=== PATIENT | female | born 1950 | race Caucasian/White ===

== ENCOUNTER 2016-10-31 09:02 | Inpatient (IN) | payer MEDICARE, OTHER ==
[~2016-10-31] VITALS: Ht 157.5 cm; Wt 63.0 kg
[2016-10-31] MEDS ORDERED: MORPHINE SULFATE 4 MG/ML, 1ML ONE ×2 (09:27→10:38)
[2016-10-31] MEDS ORDERED: ONDANSETRON 2MG/ML, 2ML ONE (09:27)
[2016-10-31] MEDS ORDERED: SODIUM CHLORIDE FLUSH 10ML SYR IVF ONE (09:30)
[2016-10-31] MEDS ORDERED: ONDANSETRON 2MG/ML, 2ML IVPush ONE (09:30)
[2016-10-31] MEDS: MORPHINE SULFATE 4 MG/ML, 1ML IVPush PRN ×2 (09:41→10:40)
[2016-10-31] MEDS ORDERED: HYDROmorphone 1 MG/ML, 1ML ONE ×2 (11:07→11:44)
[2016-10-31] MEDS ORDERED: LORazepam 2 MG/ML, 1ML ONE (11:07)
[2016-10-31] MEDS ORDERED: SODIUM CHLORIDE 0.9% 1,000 ML IV ONE (11:09)
[2016-10-31] MEDS: HYDROmorphone 1 MG/ML, 1ML IVPush PRN ×2 (11:18→11:50)
[2016-10-31] MEDS ORDERED: LORazepam 2 MG/ML, 1ML IVPush ONE (11:30)
[2016-10-31] MEDS ORDERED: BENA40TA2 PO (12:34)
[2016-10-31] MEDS ORDERED: LEVO88TA4 PO (12:34)
[2016-10-31] MEDS ORDERED: [UNRECOGNIZED DRUG - REMARK] (12:34)
[2016-10-31 13:51] VITALS: BP 127/70
[2016-10-31] MEDS ORDERED: TRAZ100T15 PO (14:11)
[2016-10-31] MEDS ORDERED: ONDANSETRON 2MG/ML, 2ML IVPush PRN (16:00)
[2016-10-31] MEDS ORDERED: TEMAZEPAM 15 MG CAPSULE PO PRN (16:00)
[2016-10-31] MEDS ORDERED: ACETAMINOPHEN 325 MG TABLET PO PRN (16:00)
[2016-10-31] MEDS ORDERED: ENALAPRILAT 1.25 MG/ML, 2ML IVPush PRN (16:00)
[2016-10-31] MEDS ORDERED: POLYETHYLENE GLYCOL 17 GM PACKET PO PRN (16:00)
[2016-10-31] MEDS: morphine SULFATE 10 MG/ML, 1ML IVPush PRN (17:14)
[2016-10-31] MEDS: HYDROcodone/APAP 5/325 TABLET PO PRN (18:40)
[2016-10-31 19:22] VITALS: BP 110/67
[2016-10-31 20:18] VITALS: BP 110/67
[2016-10-31] MEDS ORDERED: TRAZODONE 100MG TABLET PO PRN (21:00)
[2016-11-01] MEDS: HYDROcodone/APAP 5/325 TABLET PO PRN ×3 (00:25→16:19)
[2016-11-01 01:09] LABS: PATH.CAST-FLAG NOT PRESENT; SPERM-FLAG NOT PRESENT; SRC-FLAG NOT PRESENT; XTAL-FLAG NOT PRESENT; YLC-FLAG NOT PRESENT
[2016-11-01] MEDS: SODIUM CHLORIDE 0.9% 1,000 ML IV SCH ×3 (01:33→15:15)
[2016-11-01 02:57] VITALS: BP 114/68
[2016-11-01] MEDS: LEVOTHYROXINE 88 MCG TABLET PO SCH (06:16)
[2016-11-01] MEDS: morphine SULFATE 10 MG/ML, 1ML IVPush PRN ×2 (06:16→20:02)
[2016-11-01 06:24] LABS: ASPARTATE AMINO TRANSFERASE 31 U/L (15-37); BLOOD UREA NITROGEN 10 mg/dL (7-18)
[2016-11-01 07:41] VITALS: BP 132/73
[2016-11-01] MEDS: BENAZEPRIL 20 MG TABLET PO SCH (11:36)
[2016-11-01 13:30] VITALS: BP 111/66
[2016-11-01] MEDS ORDERED: METH750T2 PO (15:40)
[2016-11-01] MEDS ORDERED: CARI350T14 PO (15:40)
[2016-11-01] MEDS ORDERED: LEVO88TA4 PO (15:40)
[2016-11-01] MEDS ORDERED: PARO20TA4 PO (15:40)
[2016-11-01] MEDS ORDERED: TRAZ100T15 PO (15:40)
[2016-11-01] MEDS ORDERED: CEFTRIAXONE PMX 1GM/50ML 50 ML IV SCH (19:00)
[2016-11-01] MEDS ORDERED: METHOCARBAMOL 750 MG TABLET PO PRN (19:00)
[2016-11-01 19:26] VITALS: BP 99/53
[2016-11-02] MEDS: SODIUM CHLORIDE 0.9% 1,000 ML IV SCH ×2 (01:21→11:30)
[2016-11-02] MEDS: morphine SULFATE 10 MG/ML, 1ML IVPush PRN ×2 (02:44→11:55)
[2016-11-02 03:05] VITALS: BP 98/65
[2016-11-02] MEDS: LEVOTHYROXINE 88 MCG TABLET PO SCH (06:02)
[2016-11-02 07:42] VITALS: BP 114/69
[2016-11-02] MEDS: BENAZEPRIL 20 MG TABLET PO SCH (08:14)
[2016-11-02] MEDS: HYDROcodone/APAP 5/325 TABLET PO PRN ×2 (08:21→15:33)
[2016-11-02] MEDS ORDERED: PAROXETINE 20 MG TABLET PO SCH (09:00)
[2016-11-02 13:21] VITALS: BP 110/65
[2016-11-02] MEDS ORDERED: HYDR-3240 PO (15:41)
[2016-11-02] MEDS ORDERED: POLY17PO5 PO (15:41)
[2016-11-02] MEDS ORDERED: TRAM50TA2 PO (15:41)
[2016-11-02] MEDS ORDERED: CEFD300C37 PO (16:46)
== END 2016-11-02 17:55 | disposition home or self-care (01) | DRG 872 ==
LOC: ED 09:38 → EDIP 11:37 → 3NE 13:46
PROVIDERS: ATTEND Internal Medicine
DX: A41.9 Sepsis, unspecified organism (principal); S42.291A Other displaced fracture of upper end of right humerus, initial encounter for closed fracture; N39.0 Urinary tract infection, site not specified; I10 Essential (primary) hypertension; E03.9 Hypothyroidism, unspecified; Z90.710 Acquired absence of both cervix and uterus; Z80.1 Family history of malignant neoplasm of trachea, bronchus and lung; Z79.899 Other long term (current) drug therapy; W01.0XXA Fall on same level from slipping, tripping and stumbling without subsequent striking against object, initial encounter; Y93.01 Activity, walking, marching and hiking; Y92.89 Other specified places as the place of occurrence of the external cause; Y99.8 Other external cause status
CPT/HCPCS: 36415; 71010; 80053; 81001; 84443; 85025; 87040; 87086; 96361; 96374; 96375; 96376; J0696; J1170; J2405; J2060; J2270; J7030

== ENCOUNTER → 2017-10-18 | Outpatient (CLI) | payer MEDICARE ==
[~2017-10-18] MED LIST: BENA40TA2 PO; CARI350T14 PO; CEFD300C37 PO; HYDR-3240 PO; LEVO88TA4 PO; METH750T2 PO; PARO20TA4 PO; POLY17PO5 PO; TRAM50TA2 PO; TRAZ100T15 PO; [UNRECOGNIZED DRUG - REMARK]
== END | disposition home or self-care (01) ==
LOC: RAD 15:19
PROVIDERS: ATTEND Physician Assistant
DX: S82.832A Other fracture of upper and lower end of left fibula, initial encounter for closed fracture (principal); S82.392A Other fracture of lower end of left tibia, initial encounter for closed fracture; X58.XXXA Exposure to other specified factors, initial encounter; Y93.89 Activity, other specified; Y92.89 Other specified places as the place of occurrence of the external cause; Y99.8 Other external cause status